=== PATIENT | male | born 1980 | race Caucasian/White ===

== ENCOUNTER 2020-04-06 06:12 | Emergency (ER) | payer SELFPAY ==
[~2020-04-06] VITALS: Ht 177.8 cm; Wt 87.6 kg
[~2020-04-06 06:12] MED LIST: HYDR-3165 PO; IBUP200T44 PO
[2020-04-06 06:34] VITALS: BP 167/101
[2020-04-06] MEDS ORDERED: PRED-220 PO (06:48)
[2020-04-06] MEDS ORDERED: AMOX1TAB61 PO (06:48)
--- NOTE | 2020-04-06 06:49 | PHYS DOC ---
Past History Past Medical History: No Pertinent History Past Surgical History: Other Additional Past Surgical Histo: left shoulder repair, back surgery x2 Alcohol Use: Occasionally Drug Use: None General Adult EDM: Chief Complaint: DENTAL PROBLEM HPI: HPI: 39-year-old male presents with 3-day history of dental pain. He is concerned that he is developing infection and the lower teeth on the left side. He has known broken teeth and decay in this area. He has just been avoiding getting it fixed. Over the last couple of days he feels like that part of his mouth is swollen and it is changed has bite a little bit. It is most painful when he closes his mouth right before his teeth meet. He further has discomfort at the TMJ that radiates up into his temples and down his jaw. He has not had this before. He denies fever or chills. No drainage in and around the teeth. Review of Systems: Review of Systems: Constitutional: Denies fever or chills Eyes: Denies change in visual acuity HENT: Denies nasal congestion or sore throat. Dental pain Respiratory: Denies cough or shortness of breath Cardiovascular: Denies chest pain or edema GI: Denies abdominal pain, nausea, vomiting, bloody stools or diarrhea : Denies dysuria Musculoskeletal: Denies back pain or joint pain Integument: Denies rash Neurologic: Denies headache, focal weakness or sensory changes Endocrine: Denies polyuria or polydipsia Lymphatic: Denies swollen glands Psychiatric: Denies depression or anxiety Allergies: Allergies: Allergies Coded Allergies Type Severity Reaction Last Updated Verified No Known Drug Allergies 05/20/15 No Physical Exam: PE: Constitutional: Well developed, well nourished, no acute distress, non-toxic appearance. [] HENT: Normocephalic, atraumatic, bilateral external ears normal, oropharynx moist, no oral exudates, nose normal. Multiple dental caries in all 4 quadrants, worse in the lower left. Erythematous gums without palpable abscess. [] Eyes: PERRLA, EOMI, conjunctiva normal, no discharge. [] Neck: Normal range of motion, no tenderness, supple, no stridor. [] Cardiovascular:Heart rate regular rhythm, no murmur [] Lungs & Thorax: Bilateral breath sounds clear to auscultation [] Abdomen: Bowel sounds normal, soft, no tenderness, no masses, no pulsatile masses. [] Skin: Warm, dry, no erythema, no rash. [] Back: No tenderness, no CVA tenderness. [] Extremities: No tenderness, no cyanosis, no clubbing, ROM intact, no edema. [] Neurologic: Alert and oriented X 3, normal motor function, normal sensory function, no focal deficits noted. [] Psychologic: Affect normal, judgement normal, mood normal. [] Current Patient Data: Vital Signs: Vital Signs Date Time Temp Pulse Resp B/P (MAP) Pulse Ox O2 Delivery O2 Flow Rate FiO2 04/06/20 06:34 98.1 70 16 167/101 (123) 98 Room Air EKG: EKG: [] Radiology/Procedures: Radiology/Procedures: [] Heart Score: Risk Factors: Risk Factors: DM, Current or recent (<one month) smoker, HTN, HLP, family history of CAD, obesity. Risk Scores: Score 0 - 3: 2.5% MACE over next 6 weeks - Discharge Home Score 4 - 6: 20.3% MACE over next 6 weeks - Admit for Clinical Observation Score 7 - 10: 72.7% MACE over next 6 weeks - Early Invasive Strategies Course & Med Decision Making: Course & Med Decision Making Pertinent Labs and Imaging studies reviewed. (See chart for details) The patient's gums look as though he may have an early dental infection. He also has tenderness over the left TMJ. I will treat him with Augmentin for 7 days for the infection as well as 3 days of prednisone for his TMJ pain. He is stable for discharge at this time. [] Dragon Disclaimer: Ophelia Disclaimer: This electronic medical record was generated, in whole or in part, using a voice recognition dictation system. Departure Departure: Impression: Primary Impression: Infected dental caries Additional Impression: Left-sided temporomandibular joint pain-dysfunction syndrome Disposition: 01 DC HOME SELF CARE/HOMELESS Condition: STABLE Referrals: PCPGERALD (PCP) Patient Instructions: Dental Pain, [id number], Temporomandibular Joint Pain- Brief Scripts Prednisone (PREDNISONE) 10 Mg Tablet 40 MG PO DAILY for TMJ pain for 3 Days, #12 TAB Prov: DEBBIE LARRY DO 04/06/20 Amoxicillin/Potassium Clav (AUGMENTIN 875-125 TABLET) 1 Each Tablet 1 TAB PO BID for dental infection for 7 Days, #14 TAB 0 Refills Prov: DEBBIE LARRY DO 04/06/20 DEBBIE LARRY DO Apr 06, 2020 06:49
== END 2020-04-06 06:52 | disposition home or self-care (01) ==
LOC: ER 06:12
DX: K02.9 Dental caries, unspecified (principal); K04.7 Periapical abscess without sinus; M26.622 Arthralgia of left temporomandibular joint
CPT/HCPCS: 99283

== ENCOUNTER 2020-04-08 08:11 | Emergency (ER) | payer SELFPAY ==
[~2020-04-08] VITALS: Ht 177.8 cm; Wt 85.0 kg
[~2020-04-08 08:11] MED LIST changes: +AMOX1TAB61 PO; +PRED-220 PO
--- NOTE | 2020-04-08 09:04 | PHYS DOC ---
Past History Past Medical History: No Pertinent History, Other Additional Past Medical Histor: TMJ Past Surgical History: Other Additional Past Surgical Histo: skin graft, left rotator cuff, L5-S1 fusion Alcohol Use: Occasionally Drug Use: None Adult General Chief Complaint Chief Complaint: LOWEREXTREMITY INJURY [facility] HPI Patient is a 39 healthy male without any medical issues who presents for right knee pain. Onset was yesterday evening. Patient reports jumping over a fence and landing on his right lower extremity. Suffered immediate right lateral knee pain. Has had an antalgic gait since unable to bear some body weight. Lateral movements and full weightbearing make worse. He has not taken anything for the pain, has not tried anything to make better. Patient has no history of knee zeng rgeries in the past. No other changes in motor or sensory function, no neurologic changes noted Review of Systems Review of Systems Fourteen body systems of review of systems have been reviewed. See HPI for pertinent positives and negative responses, other espinoza all other systems are negative, non-pertinent or non-contributory Allergies Allergies Allergies Coded Allergies Type Severity Reaction Last Updated Verified No Known Drug Allergies 05/20/15 No Physical Exam Physical Exam Constitutional: Well developed, well nourished, no acute distress, non-toxic appearance. HENT: Normocephalic, atraumatic, bilateral external ears normal, oropharynx moist, no oral exudates, nose normal. Eyes: PERRLA, EOMI, conjunctiva normal, no discharge. Neck: Normal range of motion, no tenderness, supple, no stridor. Cardiovascular: Heart rate regular, sinus rhythm, no murmurs rubs or gallops Lungs & Thorax: Bilateral breath sounds clear to auscultation Abdomen: Bowel sounds normal, soft, no tenderness, no masses, no pulsatile masses. Nonsurgical abdomen, no peritoneal signs Skin: Warm, dry, no erythema, no rash. Back: No tenderness, no CVA tenderness. Extremities: No tenderness, no cyanosis, no clubbing, ROM intact, no edema. Right knee: Patella nontender Medial joint line nontender, lateral joint liner installer to palpation with mild soft tissue edema and ecchymosis present Posterior drawer and Lachmans exam without significant laxity, exam limited due to the pain Varus and Valgus Stress without significant laxity, exam limited due to pain Full Range of Motion with full strength Neurovascular exam distally in tact per routine Compartments surrounding are soft Neurologic: Alert and oriented X 3, grossly normal motor & sensory function, no focal deficits noted. Psychologic: Affect normal, judgement normal, mood normal. Current Patient Data Vital Signs Vital Signs Date Time Temp Pulse Resp B/P (MAP) Pulse Ox O2 Delivery O2 Flow Rate FiO2 04/08/20 08:29 97.9 85 16 139/92 (108) 96 Room Air EKG EKG [] Radiology/Procedures Radiology/Procedures PROCEDURE: KNEE RIGHT 4V EXAMINATION: KNEE RIGHT 4V CLINICAL HISTORY: Diffuse knee pain after jumping over a fence TECHNIQUE: KNEE RIGHT 4V Number of Images/Views: 4 COMPARISON: None FINDINGS: Mildly displaced small curvilinear avulsion fracture along the lateral aspect of the lateral tibial plateau, compatible with a Segond fracture. No additional acute fracture visualized. Joint spaces and alignment maintained. Small suprapatellar enthesophyte. Mild edema in Hoffa's fat pad and trace suprapatellar joint fluid. IMPRESSION: Mildly displaced small avulsion fracture of the lateral tibial plateau, recommend MRI to evaluate for associated ACL and/or meniscal tear. Electronically signed by: Nader Marks DO (04/08/2020 9:20 AM) [id number] Heart Score HEART Score for Chest Pain: HEART Score for Chest Pain Response (Comments) Value History Slighlty/Non-Suspicious 0 ECG Normal 0 Age < 45 0 Risk Factors No Risk Factors 0 Total 0 Risk Factors: Risk Factors: DM, Current or recent (<one month) smoker, HTN, HLP, family history of CAD, obesity. Risk Scores: Risk Factors: DM, Current or recent (<one month) smoker, HTN, HLP, family history of CAD, obesity. Course & Med Decision Making Course & Med Decision Making Pertinent Labs and Imaging studies reviewed. (See chart for details) Discussed most likely diagnosis of small avulsion fracture of lateral tibial plateau in addition to potential ligamentous damage I discussed there are no surgical and/or emergent findings during examination today. I discussed case with on-call orthopedic surgeon at [facility] who advised knee immobilization and close outpatient follow-up with their clinic in upcoming week for MRI I discussed this plan of care with patient who is amenable to plan of care as stated. Knee immobilizer placed, crutches provided, supportive care i nstructions such as rice protocol instructed at length Strict return precautions were discussed with good understanding by patient, all questions and concerns addressed prior to ER departure in stable condition Dragon Disclaimer Dragon Disclaimer This electronic medical record was generated, in whole or in part, using a voice recognition dictation system. Departure Departure: Impression: Primary Impression: Injury of right knee Additional Impression: Tibial plateau fracture, right Disposition: 01 DC HOME SELF CARE/HOMELESS Condition: STABLE Referrals: PCP,NO (PCP) PATRICIA SALAS MD Please call first thing after ER departure to schedule outpatient follow-up visit for MRI Patient Instructions: Knee Pain, RICE - Routine Care for Injuries Additional Instructions: As discussed prior to ER departure, please call the orthopedic surgeon attached, Dr. Salas, to schedule outpatient follow-up visit You were diagnosed with a small lateral tibial plateau fracture with suspect ligamentous damage that will require further investigation with most likely MRI imaging Please utilize knee immobilizer and crutches that were provided to you prior to ER departure, continue rice protocol and use Tylenol as needed for pain If any concerning signs or symptoms present prior to outpatient follow-up, pl ease do not hesitate to come back for repeat evaluation. It was a pleasure to take care of you and I wish you a speedy recovery! Problem Qualifiers ANI JONES DO Apr 08, 2020 09:04
--- NOTE | 2020-04-08 09:23 | RAD ---
EXAMINATION: KNEE RIGHT 4V CLINICAL HISTORY: Diffuse knee pain after jumping over a fence TECHNIQUE: KNEE RIGHT 4V Number of Images/Views: 4 COMPARISON: None FINDINGS: Mildly displaced small curvilinear avulsion fracture along the lateral aspect of the lateral tibial plateau, compatible with a Segond fracture. No additional acute fracture visualized. Joint spaces and alignment maintained. Small suprapatellar enthesophyte. Mild edema in Hoffa's fat pad and trace suprapatellar joint fluid. IMPRESSION: Mildly displaced small avulsion fracture of the lateral tibial plateau, recommend MRI to evaluate for associated ACL and/or meniscal tear. Electronically signed by: Nader Marks DO (04/08/2020 9:20 AM) [id number]
[2020-04-08 11:15] VITALS: BP 127/96
== END 2020-04-08 11:18 | disposition home or self-care (01) ==
LOC: ER 08:11
DX: S82.141A Displaced bicondylar fracture of right tibia, initial encounter for closed fracture (principal); W17.89XA Other fall from one level to another, initial encounter; Y93.39 Activity, other involving climbing, rappelling and jumping off; Y92.89 Other specified places as the place of occurrence of the external cause; Y99.8 Other external cause status
CPT/HCPCS: 29505; 73564; 99283

== ENCOUNTER → 2020-04-17 | Outpatient (CLI) | payer SELFPAY ==
[2020-04-08 11:15] VITALS: BP 127/96
--- NOTE | 2020-04-17 16:18 | RAD ---
INDICATION: Knee pain COMPARISON: April 08, 2020 IMPRESSION: Right knee: 2 views obtained. Repeat demonstration of small fracture fragment off of the lateral tibial plateau. Given the location involvement of the medial collateral ligament is a consideration. There is joint effusion as well as swelling of the soft tissues and edema at Hoffa's fat pad. Electronically signed by: Brennan Herrera MD (04/17/2020 4:15 PM) [id number]
== END ==
LOC: DXRAD 14:26
PROVIDERS: ATTEND Orthopaedic Surgery
DX: S82.141A Displaced bicondylar fracture of right tibia, initial encounter for closed fracture (principal); M25.461 Effusion, right knee; M79.89 Other specified soft tissue disorders; X58.XXXA Exposure to other specified factors, initial encounter; Y93.89 Activity, other specified; Y92.89 Other specified places as the place of occurrence of the external cause; Y99.8 Other external cause status
CPT/HCPCS: 73560

== ENCOUNTER 2021-02-16 14:11 | Emergency (ER) | payer OTHER ==
[~2021-02-16] VITALS: Ht 177.8 cm; Wt 87.3 kg
[2021-02-16 14:19] VITALS: BP 157/94
--- NOTE | 2021-02-16 14:41 | PHYS DOC ---
Past History Past Medical History: No Pertinent History, Other Additional Past Medical Histor: TMJ, chinoc back pain (MONSERRAT SINGH APRN) Past Surgical History: Other Additional Past Surgical Histo: skin graft, left rotator cuff, L5-S1 fusion (MONSERRAT SINGH APRN) Alcohol Use: None Drug Use: None (MONSERRAT SINGH APRN) General Adult EDM: Chief Complaint: BACK PAIN OR INJURY HPI: HPI: Patient is a 40-year-old male being seen in the ER for right lower back pain that radiates into his buttock notes been going on for 7 weeks. He states that it is just gotten worse in severity. He rates his pain 7 out of 10. Patient has a history of chronic back pain and back surgeries. He states that the pain started after he lifted something heavy 7 weeks ago. Patient denies any saddle anesthesias, loss of bowel or bladder, numbness or tingling in his extremities. He states that it is worse with ambulation and movement. (MONSERRAT SINGH APRN) Review of Systems: Review of Systems: 14 body systems of the review of systems have been reviewed. See HPI for pertinent positive and negative responses, otherwise all other systems are negative, nonpertinent or noncontributory (MONSERRAT SINGH APRN) Current Medications: Current Meds: Current Medications Medications (Trade) Dose Ordered Sig/Angelina Start Time Stop Time Status Last Admin Dose Admin Ketorolac Tromethamine (Toradol Im) 60 mg 1X ONCE 02/16/21 14:45 02/16/21 14:46 Orphenadrine Citrate (Norflex) 60 mg 1X ONCE 02/16/21 14:45 02/16/21 14:46 UNV (MONSERRAT SINGH APRN) Allergies: Allergies: Allergies Coded Allergies Type Severity Reaction Last Updated Verified No Known Drug Allergies 05/20/15 No (MONSERRAT SINGH APRN) Physical Exam: PE: Constitutional: Well developed, well nourished, no acute distress, non-toxic appearance. [] HENT: Normocephalic, atraumatic Eyes: PERRL, EOMI, conjunctiva normal, no discharge. [] Neck: Normal range of motion, no bony cervical spinal tenderness, supple, no stridor. [] Cardiovascular: Normal peripheral perfusion Lungs & Thorax: Normal work of breathing Abdomen: Soft Skin: Warm, dry, no erythema, no rash. [] Back: No bony tenderness, normal range of motion, right lumbar paraspinal tenderness with palpation Extremities: No tenderness, no cyanosis, no clubbing, ROM intact, no edema. [] Neurologic: Alert and oriented X 3, normal motor function, normal sensory function, no focal deficits noted. [] Psychologic: Affect normal, judgement normal, mood normal. [] (MONSERRAT SINGH APRN) Current Patient Data: Vital Signs: Vital Signs Date Time Temp Pulse Resp B/P (MAP) Pulse Ox O2 Delivery O2 Flow Rate FiO2 02/16/21 14:19 98.6 87 16 157/94 (115) 98 Room Air (MONSERRAT SINGH APRN) EKG: EKG: [] (MONSERRAT SINGH APRN) Radiology/Procedures: Radiology/Procedures: PROCEDURE: LUMBAR SPINE 2-3V XR LUMBAR SPINE 2-3V History: Low back pain Comparison: None. Technique: 3 views of the lumbar spine. Findings: There are 5 non-rib bearing lumbar vertebral segments. Postsurgical features from posterior spinal fixation at L5-S1 with intervertebral disc spacer. No evidence of screw loosening or complication. There is no evidence of fracture. Alignment is normal. No destructive osseous lesions are seen. Lower lumbar facet hypertrophy. Mild disc space narrowing at L3-L4 with marginal osteophytes. Sacroiliac joints are unremarkable. Soft tissues are unremarkable. IMPRESSION: 1. Degenerative disc disease of the lumbar spine greatest at L3-L4. 2. Posterior spinal fixation L5-S1 without evidence of complication. Electronically signed by: Allen Darnell MD (02/16/2021 3:05 PM) [id number] DICTATED AND SIGNED BY: ALLEN DARNELL MD DATE: 02/16/21 1459 CC: MONSERRAT SINGH APRN; PCP,NO ~MTH0 0 [] (MONSERRAT SINGH APRN) Heart Score: C/O Chest Pain: No Risk Factors: Risk Factors: DM, Current or recent (<one month) smoker, HTN, HLP, family history of CAD, obesity. Risk Scores: Score 0 - 3: 2.5% MACE over next 6 weeks - Discharge Home Score 4 - 6: 20.3% MACE over next 6 weeks - Admit for Clinical Observation Score 7 - 10: 72.7% MACE over next 6 weeks - Early Invasive Strategies (MONSERRAT SINGH APRN) Course & Med Decision Making: Course & Med Decision Making Pertinent Labs and Imaging studies reviewed. (See chart for details) [] Patient is a 40-year-old male being seen in the ER for right lower back pain that radiates into his buttock. No injury. Pain started 7 weeks ago. Pain started after lifting a heavy sofa. Imaging was performed of his lumbar spine that showed no acute findings but degenerative disc disease. Patient's pain treated in the ER. Patient advised to take ibuprofen for pain. He is advised to follow-up with his primary care provider. If his pain continues he may require physical therapy. I discussed with patient all findings and diagnostic testing as well as the need to follow-up with PCP for further evaluation and treatment or return to the ER if any new or worsening symptoms. Strict return precautions were also discussed at length. Patient voiced understanding and agreement with the plan. Patient is hemodynamically stable at the time of disposition. (MONSERRAT SINGH APRN) Course & Med Decision Making 02/17/21: Patient called regarding prescription for [place] 5/325mg x 8 tabs was not at [facility] as stated by provider yesterday and on discharge documentation. [employer] plans staff officer and myself evaluated chart with findings that the Rx appeared to be "verified". Advised patient to discuss issue with pharmacy. [facility] subsequently called and report Rx is not in their system. Advised concern that I was not involved in patient's care but would cancel prior electronic Rx and will resubmit the Rx as original provider- Monserrat WEINER is not currently working. Rx sent. I was not involved in patient's care nor was I supervising physician for CONCRETE ENGINEERING TECHNICIAN. (JOSELIN ELLIS DO) Course & Med Decision Making I was the Attending physician on the above date of service of this patient. This patient was evaluated, examined, treated, and dispositioned from the emergency department by the mid-level practitioner. Although I was working at the time , no assistance was requested. Electronically signed, Ani Jones DO (ANI JONES DO) Ophelia Disclaimer: Ophelia Disclaimer: This electronic medical record was generated, in whole or in part, using a voice recognition dictation system. (MONSERRAT SINGH APRN) Departure Departure: Impression: Primary Impression: Back pain Qualified Codes: M54.41 - Lumbago with sciatica, right side; G89.29 - Other chronic pain Disposition: 01 HOME / SELF CARE / HOMELESS Condition: GOOD Referrals: PCP,NO (PCP) Patient Instructions: Back Pain, Adult Additional Instructions: You were seen in the ER today for right lower back pain that radiates into your buttock. Imaging was performed of your lumbar spine and it showed degenerative disc disease but no acute findings. Your pain was treated in the ER. At home you can take Tylenol/ibuprofen for any pain you can also apply ice or heat. You are being discharged home with a muscle relaxer. You can take this as directed. This medication may cause drowsiness so do not take need to be able to take with alcohol. Follow-up with your primary care provider tomorrow regarding your ER visit. If your pain continues you may benefit from physical therapy. Please return to the ER if you have worsening of your back pain, inability to bear weight or ambulate, loss of bowel or bladder, numbness or tingling in your groin or down your legs. EMERGENCY DEPARTMENT GENERAL DISCHARGE INSTRUCTIONS Thank you for coming to [facility] (ED) today and trusting us with you care. We trust that you had a positivie experience in our Emergency Department. If you wish to speak to the department management, you may call the director at [phone]. YOUR FOLLOW UP INSTRUCTIONS ARE FOLLOWS: 1. Do you have a private Doctor? If you do not have a private doctor, please ask for a resource list of physicians or clinics that may be able to assist you with follow up care. 2. The Emergency Physician has interpreted your x-rays. The X-Ray specialist will also review them. If there is a change in the findings, you will be notified in 48 hours when at all possible. 3. A lab test or culture has been done, your results will be reviewed and you will be notified if you need a change in treatment. ADDITIONAL INSTRUCTIONS AND INFORMATION: 1. Your care today has been supervised by a physician who is specially trained in emergency care. Many problems require more than one evaluation for a complete diagnosis and treatment. We recommend that you schedule your follow up appointment as recommended to ensure complete treatment of you illness or injury. If you are unable to obtain follow up care and continue to have a problem, or if your condition worsens, we recommend that you return to the ED. 2. We are not able to safely determine your condition over the phone nor are we able to give sound medical advice over the phone. For these safety reasons, if you call for medical advice we will ask you to come to the ED for further evaluation. 3. If you have any questions regarding these discharge instructions please call the ED at [phone]. SAFETY INFORMATION: In the interest of safety, wellness, and injury prevention; we encourage you to wear your sealbelt, if you smoke; quite smoking, and we encourage family to use a prot ective helmet for bicycling and other sporting events that present an increased risk for head injury. IF YOUR SYMPTOMS WORSEN OR NEW SYMPTOMS DEVELOP, OR YOU HAVE CONCERNS ABOUT YOUR CONDITION; OR IF YOUR CONDITION WORSENS WHILE YOU ARE WAITING FOR YOUR FOLLOW UP APPOINTMENT; EITHER CONTACT YOUR PRIMARY CARE DOCTOR, THE PHYSICIAN WHOSE NAME AND NUMBER YOU WERE GIVEN, OR RETURN TO THE ED IMMEDIATELY. ] Scripts Hydrocodone Bit/Acetaminophen (HYDROCODONE-APAP 5-325 ) 1 Each Tablet 1 TAB PO PRN Q6HRS PRN for PAIN for 2 Days, #8 TAB 0 Refills Prov: JOSELIN ELLIS DO 02/17/21 Cyclobenzaprine Hcl (CYCLOBENZAPRINE HCL) 5 Mg Tablet 1 TAB PO TID for muscle spasm for 5 Days, #15 TAB 0 Refills Prov: MONSERRAT SINGH NECK BAND OPERATOR 02/16/21 MONSERRAT SINGH APRN Feb 16, 2021 14:41 JOSELIN ELLIS DO Feb 17, 2021 14:33 ANI JONES DO Feb 21, 2021 17:52
[2021-02-16] MEDS ORDERED: ORPHENADRINE CITRATE 60 MG/2 ML VIAL. IM ONE (14:45)
[2021-02-16] MEDS ORDERED: KETOROLAC 60 MG/2 ML VIAL. IM ONE (14:45)
--- NOTE | 2021-02-16 15:07 | RAD ---
XR LUMBAR SPINE 2-3V History: Low back pain Comparison: None. Technique: 3 views of the lumbar spine. Findings: There are 5 non-rib bearing lumbar vertebral segments. Postsurgical features from posterior spinal fixation at L5-S1 with intervertebral disc spacer. No moreno dence of screw loosening or complication. There is no evidence of fracture. Alignment is normal. No destructive osseous lesions are seen. Lower lumbar facet hypertrophy. Mild disc space narrowing at L3-L4 with marginal osteophytes. Sacroiliac joints are unremarkable. Soft tissues are unremarkable. IMPRESSION: 1. Degenerative disc disease of the lumbar spine greatest at L3-L4. 2. Posterior spinal fixation L5-S1 without evidence of complication. Electronically signed by: Allen De Los Santos MD (02/16/2021 3:05 PM) [id number]
[2021-02-16] MEDS ORDERED: CYCL5TAB PO (15:17)
[2021-02-16] MEDS ORDERED: HYDR-2155 PO (15:32)
[2021-02-17] MEDS ORDERED: HYDR-2155 PO (14:25)
== END 2021-02-16 15:41 | disposition home or self-care (01) ==
LOC: ER 14:11
DX: M54.41 Lumbago with sciatica, right side (principal); G89.29 Other chronic pain
CPT/HCPCS: 72100; 96372; 99284; J1885; J2360